=== PATIENT | male | born 1955 ===

== ENCOUNTER → 2020-08-08 07:32 | Outpatient (CLI) | payer OTHER | END | disposition home or self-care (01) | LOC: NUCLEAR 07:00 | PROVIDERS: ATTEND Internal Medicine Cardiovascular Disease | DX: I25.6 Silent myocardial ischemia (principal); I25.9 Chronic ischemic heart disease, unspecified; I25.5 Ischemic cardiomyopathy | CPT/HCPCS: 78452; 93017; A9500; J0153 ==